=== PATIENT | female | born 1945 | race Caucasian/White ===

== ENCOUNTER 2019-11-13 06:17 | Outpatient (CLI) | payer MEDICARE, BC, OTHER ==
[2019-11-13 13:59] LABS: PTT 40.2 sec (22.9-36.1); Prothrombin Time 13.4 sec (12.0-14.7)
[2019-11-13 14:13] LABS: Hemoglobin 13.9 g/dL (12.0-16.0); Mean Corpuscular HGB CONC 33.2 g/dL (32.0-36.0); Mean Corpuscular Hemoglobin 31.1 pg (27.0-31.0); Mean Corpuscular Volume 93.7 fL (78.0-98.0); Mean Platelet Volume 8.2 fL (7.4-10.4); Platelet Count 258 thou/uL (130-400); RBC Distribution Width 11.9 % (11.5-14.5); Red Blood Cell (RBC) Count 4.46 mill/uL (4.20-5.40); White Blood Cell (WBC) Count 5.3 thou/uL (4.8-10.8)
[2019-11-13 15:27] LABS: Anion Gap 13 mmol/L (10-20); BUN (Urea Nitrogen) 12 mg/dL (9.8-20.1); Calc. Creatinine Clearance 0 mL/min (70-130); Calcium 9.9 mg/dL (7.8-10.44); Carbon Dioxide 26 mmol/L (23-31); Chloride 106 mmol/L (98-107); Estimated GFR-MDRD 70; Glucose 95 mg/dL (83-110); Potassium 4.2 mmol/L (3.5-5.1); Sodium 141 mmol/L (136-145)
[2019-11-14 12:17] LABS: SARS-CoV-2 MS2 Positive; SARS-CoV-2 N Gene Negative; SARS-CoV-2 S Gene Negative; SARS-CoV-2 orf1ab Negative
== END 2019-11-13 06:18 | disposition home or self-care (01) ==
LOC: LABBT 06:17
PROVIDERS: ATTEND Surgery
DX: Z01.818 Encounter for other preprocedural examination (principal); Z11.59 Encounter for screening for other viral diseases; M54.16 Radiculopathy, lumbar region; M48.061 Spinal stenosis, lumbar region without neurogenic claudication
CPT/HCPCS: 80048; 85027; 85610; 85730; 93005; U0003; 87635; 93010

== ENCOUNTER 2019-11-17 07:55 | Day surgery (SDC) | payer MEDICARE, BC ==
[2019-11-12 12:21] VITALS: BMI 26.0
[2019-11-17] MEDS ORDERED: Thrombin 5000 UNITS/5 ML VIAL ONE ×2 (09:42→13:04)
[2019-11-17] MEDS ORDERED: Fentanyl 100 MCG/2 ML VIAL ONE ×4 (11:26→15:14)
[2019-11-17] MEDS ORDERED: Acetaminophen/Codeine 30-300mg Tablet PO PRN (13:58)
[2019-11-17] MEDS ORDERED: Morphine 2 MG/ML VIAL SLOW IVP PRN (13:58)
[2019-11-17] MEDS ORDERED: Mag-Al 1200 mg/1200 mg/30 ML UDCUP PO PRN (13:58)
[2019-11-17] MEDS ORDERED: Acetaminophen 325 MG TAB PO PRN (13:58)
[2019-11-17] MEDS ORDERED: Milk Of Magnesia 30 ML UDCUP PO PRN (13:58)
[2019-11-17] MEDS ORDERED: Bisacodyl 10 MG SUPP PR PRN (13:58)
[2019-11-17] MEDS ORDERED: traMADol HCl 50 MG TAB PO PRN (13:58)
[2019-11-17] MEDS ORDERED: diphenhydrAMINE 25 MG CAP PO PRN (13:58)
[2019-11-17] MEDS ORDERED: Fleet Enema 133 ML BOT PR PRN (13:58)
[2019-11-17] MEDS ORDERED: tiZANidine HCl 4 MG TAB PO PRN (13:58)
[2019-11-17] MEDS ORDERED: Ondansetron PF 4 MG/2 ML Vial IVP PRN (13:58)
[2019-11-17] MEDS ORDERED: Dexamethasone 20 MG/5 ML VIAL ONE (14:08)
[2019-11-17] MEDS ORDERED: Ondansetron PF 4 MG/2 ML Vial ONE ×2 (14:08→14:19)
[2019-11-17] MEDS ORDERED: Glycopyrrolate 0.2 MG/ML 5 ML SYRINGE ONE (14:08)
[2019-11-17] MEDS ORDERED: PROPOFOL 200 MG/20 ML VIAL ONE (14:08)
[2019-11-17] MEDS ORDERED: Rocuronium Bromide 10 MG/ML (10ML VIAL) ONE (14:08)
[2019-11-17] MEDS ORDERED: Lidocaine 1% PF 5 ML VIAL ONE (14:08)
[2019-11-17] MEDS ORDERED: PHENYLEPHRINE-NS 100 MCG/ML 10 ML SYRINGE ONE (14:08)
[2019-11-17] MEDS ORDERED: EPHEDRINE 25 MG/5 ML SYRINGE ONE (14:08)
[2019-11-17] MEDS: Sodium Chloride 0.9% 1,000 ML IV SCH (16:35)
[2019-11-17] MEDS ORDERED: CEFAZOLIN 2 GM in Premix Bag 1 BAG IVPB SCH (17:00)
[2019-11-17] MEDS ORDERED: Scopolamine 1.5 mg/72 hour Patch TOP SCH (20:45)
[2019-11-17] MEDS: CEFAZOLIN 2 GM in Premix Bag 1 BAG IVPB SCH (21:39)
[2019-11-17] MEDS: Gabapentin 300 MG CAP PO SCH (21:39)
[2019-11-18] MEDS: Sodium Chloride 0.9% 1,000 ML IV SCH ×2 (03:53→12:48)
[2019-11-18] MEDS: CEFAZOLIN 2 GM in Premix Bag 1 BAG IVPB SCH (03:53)
--- NOTE | 2019-11-18 07:52 | OP ---
DATE OF PROCEDURE: 11/17/2019 LOCATION: OR 12. MANAGER FIELD SALES: Kellen Rivas PA-C PREPROCEDURE DIAGNOSIS: Multilevel lumbar stenosis with low back and leg pain. POSTPROCEDURE DIAGNOSIS: Multilevel lumbar stenosis with low back and leg pain. PROCEDURES PERFORMED: 1. Left L2-L3 hemilaminotomy, foraminotomy. 2. L3-L4, L4-L5 laminectomies, partial facetectomies, foraminotomies. 3. Right L5-S1 hemilaminotomy, foraminotomy. DESCRIPTION OF PROCEDURE: After informed consent was obtained from the patient, the patient was brought to the OR. Proper patient, pause, and identification were carried out. She was placed under excellent general endotracheal anesthesia and positioned prone on the OR table. All appropriate points were padded. We identified L2 through S1 dorsal spines and lamina. A linear tete was made over this area. This region was sterilely cleansed, prepared, and draped. Proper patient, pause, and identification were carried out. The wound was then opened with combination of sharp, monopolar, and blunt dissection. We then performed a left L2-L3 hemilaminotomy, foraminotomy; L3-L4 and L4-L5 laminectomies, partial facetectomies, and foraminotomies; and right L5-S1 hemilaminotomy, foraminotomy. We had excellent decompression of common dural tube and nerve roots. Copious irrigation occurred throughout as did maximizing hemostasis. The wound was then closed in anatomic layers following sprinkling of vancomycin powder. The patient emerged from anesthesia. Job ID: [id number]
[2019-11-18] MEDS ORDERED: Biotin [Biotin] 1 MG PO SCH (09:00)
[2019-11-18] MEDS ORDERED: Prevnar 13-Val Conj/PF 0.5 ML SYRINGE IM ONE (09:00)
[2019-11-18] MEDS: Stress 600 With Zinc 1 TAB PO SCH (09:00)
[2019-11-18] MEDS ORDERED: Ketorolac Tromethamine 30 MG/ML VIAL IVP PRN (09:11)
--- NOTE | 2019-11-18 09:28 | PRG ---
DATE OF SERVICE: 11/18/2019 Ms. Polo is postoperative day 1 from lumbar decompression. She has had resolution in her leg pain, but significant incisional pain, we will work on this. She does live at home alone and she should benefit from inpatient rehab. Job ID: [id number]
[2019-11-18] MEDS: Cholecalciferol 1,000 UNITS (25 MCG) TAB PO SCH (09:58)
[2019-11-18] MEDS: HYDROcodone/Acetaminophen 7.5/325 mg Tablet PO PRN ×2 (09:58→17:52)
[2019-11-18] MEDS: Gabapentin 300 MG CAP PO SCH (21:23)
[2019-11-19] MEDS: Sodium Chloride 0.9% 1,000 ML IV SCH (06:02)
[2019-11-19] MEDS: HYDROcodone/Acetaminophen 7.5/325 mg Tablet PO PRN ×2 (06:33→16:35)
[2019-11-19] MEDS: Stress 600 With Zinc 1 TAB PO SCH (09:00)
[2019-11-19] MEDS: Cholecalciferol 1,000 UNITS (25 MCG) TAB PO SCH (09:00)
--- NOTE | 2019-11-19 12:41 | PRG ---
DATE OF SERVICE: 11/19/2019 Ms. Polo is postoperative day #2 following lumbar decompression. She is doing well with resolution in her leg pain. She is mobilizing, walking 500 feet in the waggoner. She is also voiding on her own. Incisional muscle spasm is the main pain. This is the main issue we are dealing with at this point. We will keep her overnight. Hopefully, we will be able to discharge her home tomorrow. She may be doing too well to go to inpatient rehab. Job ID: [id number]
[2019-11-19] MEDS: Gabapentin 300 MG CAP PO SCH (21:15)
[2019-11-20] MEDS: HYDROcodone/Acetaminophen 7.5/325 mg Tablet PO PRN ×2 (06:22→13:08)
[2019-11-20] MEDS: Sodium Chloride 0.9% 1,000 ML IV SCH (07:01)
[2019-11-20] MEDS: Cholecalciferol 1,000 UNITS (25 MCG) TAB PO SCH (10:05)
--- NOTE | 2019-11-20 10:46 | PRG ---
DATE OF SERVICE: 11/20/2019 Ms. Polo is doing well, postoperative day #3 following multilevel lumbar decompression. I think at this point, she can be discharged home. She has had resolution in her leg pain. Her incisional pain has improved. She would like to go home with a rolling walker and we will give her prescription for that and also a shower seat prescription that will allow her to get in and out of the shower with more ease. Job ID: [id number]
[2019-11-20 11:46] VITALS: BP 114/62; TEMP 98.2
== END 2019-11-20 15:45 | disposition home or self-care (01) ==
LOC: SDC 07:55 → SJJU 14:02 → SDC 11-20 15:45
PROVIDERS: ATTEND Surgery
PROC: 01NB0ZZ Release Lumbar Nerve, Open Approach (ICD-10-PCS; principal; 2019-11-17)
DX: M48.061 Spinal stenosis, lumbar region without neurogenic claudication (principal); M54.16 Radiculopathy, lumbar region; M06.9 Rheumatoid arthritis, unspecified; F32.9 Major depressive disorder, single episode, unspecified; Z79.899 Other long term (current) drug therapy; Z88.8 Allergy status to other drugs, medicaments and biological substances
CPT/HCPCS: 63047; 63048 ×3; 76000; 97116; 97139 ×2; 97535; J2270; J0690; J1100; J2405; J2704; J3010; J3370

== ENCOUNTER 2022-08-16 11:28 | Outpatient (CLI) | payer MEDICARE, BC ==
[2022-08-16 13:04] LABS: Hemoglobin 12.4 g/dL (12.0-15.5); Mean Corpuscular HGB CONC 32.8 g/dL (32.0-36.0); Mean Corpuscular Hemoglobin 30.2 pg (27.0-33.0); Mean Platelet Volume 9.9 fl (7.4-10.4); Platelet Count 276 10x3/uL (150-450); RBC Distribution Width 12.6 % (11.5-14.5); Red Blood Cell (RBC) Count 4.11 10x6/uL (3.90-5.03); White Blood Cell (WBC) Count 6.6 10x3/uL (3.5-10.5)
[2022-08-16 13:31] LABS: Anion Gap 14 mmol/L (10-20); BUN (Urea Nitrogen) 17 mg/dL (9.8-20.1); Calc. Creatinine Clearance 0 mL/min (70-130); Calcium 9.5 mg/dL (7.8-10.44); Carbon Dioxide 26 mmol/L (23-31); Chloride 104 mmol/L (98-107); Estimated GFR 74; Glucose 88 mg/dL (83-110); Potassium 4.1 mmol/L (3.5-5.1); Sodium 140 mmol/L (136-145)
[2022-08-16 13:36] LABS: PTT 27.6 sec (22.0-33.0); Prothrombin Time 10.4 sec (9.5-12.1)
== END 2022-08-16 11:29 | disposition home or self-care (01) ==
LOC: LABBT 11:28
PROVIDERS: ATTEND Surgery
DX: Z01.812 Encounter for preprocedural laboratory examination (principal); M48.062 Spinal stenosis, lumbar region with neurogenic claudication; M54.16 Radiculopathy, lumbar region
CPT/HCPCS: 80048; 85027; 85610; 85730; 93005; 93010

== ENCOUNTER 2022-08-21 09:36 | Inpatient (IN) | payer MEDICARE, BC ==
[2022-08-20 10:26] VITALS: BMI 24.1
[2022-08-21] MEDS ORDERED: Thrombin 5000 UNITS/5 ML VIAL ONE (11:26)
[2022-08-21] MEDS ORDERED: Vancomycin 1 GM VIAL ONE (11:26)
[2022-08-21] MEDS ORDERED: Sodium Chloride 0.9% 100 ML ONE ×2 (12:13→17:43)
[2022-08-21] MEDS ORDERED: CEFAZOLIN 2 GM VIAL ONE ×2 (12:13→17:42)
[2022-08-21] MEDS ORDERED: NEOSTIGMINE 3 MG/3 ML SYR 3 MG/3 ML SYRINGE ONE (12:31)
[2022-08-21] MEDS ORDERED: Dexamethasone 20 MG/5 ML VIAL ONE (12:31)
[2022-08-21] MEDS ORDERED: Rocuronium Bromide 10 MG/ML (10ML VIAL) ONE (12:31)
[2022-08-21] MEDS ORDERED: Lidocaine 1% PF 5 ML VIAL ONE (12:31)
[2022-08-21] MEDS ORDERED: Glycopyrrolate 0.2 MG/ML 5 ML SYRINGE ONE (12:31)
[2022-08-21] MEDS ORDERED: PROPOFOL 200 MG/20 ML VIAL ONE (12:31)
[2022-08-21] MEDS ORDERED: PHENYLEPHRINE-NS 100 MCG/ML 10 ML SYRINGE ONE (12:31)
[2022-08-21] MEDS ORDERED: Ondansetron PF 4 MG/2 ML Vial ONE ×2 (12:31→15:25)
[2022-08-21] MEDS ORDERED: SUGAMMADEX SODIUM 200 MG/2 ML VIAL ONE (14:10)
[2022-08-21] MEDS ORDERED: Morphine 2 MG/ML VIAL SLOW IVP PRN (14:15)
[2022-08-21] MEDS ORDERED: Acetaminophen/Codeine 30-300mg Tablet PO PRN (14:15)
[2022-08-21] MEDS ORDERED: Acetaminophen 325 MG TAB PO PRN (14:15)
[2022-08-21] MEDS ORDERED: Ondansetron PF 4 MG/2 ML Vial IVP PRN (14:15)
[2022-08-21] MEDS ORDERED: HYDROcodone/Acetaminophen 7.5/325 mg Tablet PO PRN (14:15)
[2022-08-21] MEDS ORDERED: hydrALAZINE 20 MG/ML VIAL SLOW IVP PRN (14:19)
[2022-08-21] MEDS ORDERED: Promethazine HCl 25 MG/ML VIAL IM PRN (14:24)
[2022-08-21] MEDS ORDERED: Morphine Sulfate 2 MG/ML SYRINGE SLOW IVP PRN (14:24)
[2022-08-21] MEDS ORDERED: Ondansetron HCl/PF 4 MG/2 ML Vial IVP PRN (14:24)
[2022-08-21] MEDS ORDERED: fentaNYL 50 mcg/mL 1 mL Vial ONE ×3 (14:25→15:34)
[2022-08-21] MEDS: CEFAZOLIN 2 GM in Sodium Chloride 0.9% 100 ML IVPB SCH (17:44)
[2022-08-21] MEDS: Gabapentin 300 MG CAP PO SCH (20:54)
[2022-08-21] MEDS: tiZANidine HCl 4 MG TAB PO PRN (20:55)
[2022-08-21] MEDS: diphenhydrAMINE 25 MG CAP PO PRN (20:55)
[2022-08-22] MEDS: Sodium Chloride 0.9% 1,000 ML IV SCH ×3 (01:03→15:24)
[2022-08-22] MEDS: CEFAZOLIN 2 GM in Sodium Chloride 0.9% 100 ML IVPB SCH (01:37)
[2022-08-22] MEDS: traMADol HCl 50 MG TAB PO PRN ×3 (06:43→22:08)
[2022-08-22] MEDS: Sertraline 25 MG TAB PO SCH (08:51)
[2022-08-22] MEDS: Cholecalciferol 1,000 UNITS (25 MCG) TAB PO SCH (08:51)
[2022-08-22] MEDS: Multivitamin w/Zinc Stress 1 TAB PO SCH (08:51)
[2022-08-22] MEDS ORDERED: Non-Formulary Item 1 EACH (Biotin [Biotin] 1 MG Tablet) PO SCH (09:00)
[2022-08-22] MEDS: tiZANidine HCl 4 MG TAB PO PRN ×2 (15:56→22:11)
[2022-08-22] MEDS: Gabapentin 300 MG CAP PO SCH (22:07)
[2022-08-22] MEDS: diphenhydrAMINE 25 MG CAP PO PRN (22:08)
[2022-08-23] MEDS: Sodium Chloride 0.9% 1,000 ML IV SCH ×2 (04:55→19:44)
[2022-08-23] MEDS ORDERED: tiZANidine HCl 4 MG TAB PO PRN ×2 (08:04→08:07)
[2022-08-23] MEDS ORDERED: tiZANidine HCl 4 MG TAB PO SCH ×2 (08:15)
[2022-08-23] MEDS: Cholecalciferol 1,000 UNITS (25 MCG) TAB PO SCH (09:05)
[2022-08-23] MEDS: Sertraline 25 MG TAB PO SCH (09:05)
[2022-08-23] MEDS: Multivitamin w/Zinc Stress 1 TAB PO SCH (09:05)
[2022-08-23 11:26] LABS: #Eosinphils 0.1 thou/uL (0.0-0.7); #Monocytes 1.2 thou/uL (0.11-0.59); %Basophils 0.3 % (0.0-1.0); %Eosinophils 0.8 % (0.0-10.0); %Lymphocytes 19.5 % (21.0-51.0); %Monocytes 11.6 % (0.0-10.0); %Neutrophils 67.7 % (42.0-75.0); Hemoglobin 10.3 g/dL (12.0-16.0); Mean Corpuscular HGB CONC 33.7 g/dL (32.0-36.0); Mean Corpuscular Hemoglobin 32.1 pg (27.0-31.0); Mean Corpuscular Volume 95.2 fl (78.0-98.0); Mean Platelet Volume 7.5 fL (7.4-10.4); Platelet Count 189 10x3/uL (130-400); RBC Distribution Width 11.5 % (11.5-14.5); White Blood Cell (WBC) Count 10.3 10x3/uL (4.8-10.8)
[2022-08-23 11:48] LABS: Anion Gap 9 mmol/L (10-20); BUN (Urea Nitrogen) 12 mg/dL (9.8-20.1); Calc. Creatinine Clearance 55 mL/min (70-130); Calcium 8.5 mg/dL (7.8-10.44); Carbon Dioxide 24 mmol/L (23-31); Chloride 104 mmol/L (98-107); Estimated GFR 80; Glucose 116 mg/dL (83-110); Potassium 3.6 mmol/L (3.5-5.1); Sodium 133 mmol/L (136-145)
[2022-08-23] MEDS: Gabapentin 300 MG CAP PO SCH (19:45)
[2022-08-24] MEDS: traMADol HCl 50 MG TAB PO PRN (07:12)
[2022-08-24] MEDS: Cholecalciferol 1,000 UNITS (25 MCG) TAB PO SCH (09:26)
[2022-08-24] MEDS: Multivitamin w/Zinc Stress 1 TAB PO SCH (09:26)
[2022-08-24] MEDS: Sertraline 25 MG TAB PO SCH (09:27)
[2022-08-24 11:51] VITALS: BP 117/73; TEMP 98.1
[2022-08-24] MEDS: Sodium Chloride 0.9% 1,000 ML IV SCH (13:42)
== END 2022-08-24 16:36 | disposition home health service (06) | DRG 517 ==
LOC: SDC 09:36 → SURG A 18:20 → OBSVTOIN 08-22 08:19
PROVIDERS: ADMIT Surgery; ATTEND Surgery
PROC: 01NB0ZZ Release Lumbar Nerve, Open Approach (ICD-10-PCS; principal; 2022-08-21)
DX: M48.062 Spinal stenosis, lumbar region with neurogenic claudication (principal); M54.16 Radiculopathy, lumbar region; M62.838 Other muscle spasm
CPT/HCPCS: 36415; 80048; 85025; 96374; 96376; G0378; J1100; J2405; J2704; J3010; J3370; J3490; J7050